=== PATIENT | female | born 1955 | race Caucasian/White ===

== ENCOUNTER 2020-11-20 05:53 | Inpatient (IN) | payer BC ==
[2020-11-13 15:05] LABS: BASOPHILS # (AUTO) 0.1 X10'3 (0-0.2); BASOPHILS % (AUTO) 0.8 % (0-1); EOSINOPHILS # (AUTO) 0.2 X10'3 (0-0.9); EOSINOPHILS % (AUTO) 3.3 % (0-6); LYMPHOCYTES # (AUTO) 2.3 X10'3 (1.1-4.8); LYMPHOCYTES % (AUTO) 35.6 % (21-51); MEAN CORPUSCULAR HEMOGLOBIN 30.2 PG (27.0-31.0); MEAN CORPUSCULAR HGB CONC 33.6 g/dL (33.0-36.5); MEAN CORPUSCULAR VOLUME 89.8 FL (78-98); MONOCYTES # (AUTO) 0.5 X10'3 (0-0.9); MONOCYTES % (AUTO) 7.4 % (2-12); NEUTROPHILS # (AUTO) 3.4 X10'3 (1.8-7.7); NEUTROPHILS % (AUTO) 52.9 % (42-75); PRE OP HEMATOCRIT 42.5 % (35.0-45.0); PRE OP HEMOGLOBIN 14.3 g/dL (12.0-16.0); PRE OP PLATELET COUNT 285 X10'3 (140-440); RED BLOOD COUNT 4.73 X10'6 (4.20-5.60); RED CELL DISTRIBUTION WIDTH 12.8 % (11.5-14.5)
[2020-11-13 15:14] LABS: PRE OP INR 1.1 INR; PRE OP PROTIME 11.2 SECONDS (9.0-12.0)
[2020-11-13 15:27] LABS: ALBUMIN/GLOBULIN RATIO 1.1 (1.1-1.5); ALKALINE PHOSPHATASE 127 IU/L (46-116); BLOOD UREA NITROGEN 13 MG/DL (7-18); CALCIUM 9.5 MG/DL (8.5-10.1); CHLORIDE 106 MMOL/L (99-107); CREATININE 0.81 MG/DL (0.40-0.90); PRE OP ALT 41 U/L (30-65); PRE OP ANION GAP 11 (8-16); PRE OP AST 14 U/L (10-37); PRE OP BILIRUB, TOTAL 0.6 MG/DL (0.0-1.0); PRE OP GLUCOSE 97 MG/DL (70-104); PRE OP POTASSIUM 4.5 MMOL/L (3.4-5.1); PRE OP SODIUM 143 MMOL/L (135-145); TOTAL CARBON DIOXIDE 25.7 MMOL/L (24-32); TOTAL PROTEIN 7.8 G/DL (6.4-8.2); eGFR 71 ML/MIN
[2020-11-20] VITALS (19 sets, daily range): BP systolic 139–187; BP diastolic 71–105
[~2020-11-20] VITALS: Ht 165.1 cm; Wt 91.7 kg
[~2020-11-20 05:53] MED LIST: ASPI-611 PO; ATOR-2 PO; CARV25TA2 PO; CLOP75TA33 PO; DESV100T6 PO; DOCUMENT DATE & TIME OF BETA-BLOCKER PO ONE; HYDR12.55 PO; LISI40TA13 PO; NITR0.4T48 SL; TRAZ-251 PO; cefazolin/dext.iso 2gm/100ml IV ONE; famotidine 20mg tablet PO ONE; ringers solution, lacted 1,000 ML IV SCH
[2020-11-20] MEDS ORDERED: ringers solution, lacted 1,000 ML IV SCH (06:55)
[2020-11-20] MEDS ORDERED: ondansetron/PF 4mg/2ml inj IV PRN ×2 (06:55→14:55)
[2020-11-20] MEDS ORDERED: morphine 4 MG/ML inj SYRINge IV PRN (06:55)
[2020-11-20] MEDS ORDERED: morphine 2 MG/ML inj. syringe IV PRN (06:55)
[2020-11-20] MEDS ORDERED: proCHLORperazine 10 MG/2 ml inj IV PRN (06:55)
[2020-11-20] MEDS ORDERED: meperidine/PF 25mg/ml syringe IV PRN ×3 (06:55)
[2020-11-20 07:38] LABS: CLARITY,URINE CLEAR (Clear); COLOR,URINE YELLOW (Yellow); UA COLLECTION TYPE CLN CATCH MIDSTREAM
[2020-11-20 07:39] LABS: GLUCOSE, URINE NEGATIVE (Neg); KETONES,URINE TRACE mg/dl (Neg); LEUKOCYTE ESTERASE ,URINE NEGATIVE (Neg); NITRITES, URINE NEGATIVE (Neg); OCCULT BLOOD,URINE NEGATIVE (Neg); PROTEIN,URINE NEGATIVE (Neg); UROBILINOGEN,URINE 0.2 E.U/dL (0.2-1.0)
[2020-11-20] MEDS ORDERED: BUPIVAcaine/PF 2.5mg/ml (0.25%) 10ml vial ONE (09:04)
[2020-11-20] MEDS ORDERED: BUPIVACAINE liposomal/PF 13.3 MG/ML vial IM ONE (09:04)
[2020-11-20] MEDS ORDERED: MIDAZolam 1 MG/ML 5ML VIAL ONE (09:49)
[2020-11-20] MEDS ORDERED: fentaNYL /PF 50mcg/ml 5ml ampule ONE (09:49)
[2020-11-20] MEDS ORDERED: rocuronium 10mg/ml inj IV ONE ×3 (09:50→10:58)
[2020-11-20] MEDS ORDERED: dexamethasone sod phosphate 4mg/ml inj. ONE (09:50)
[2020-11-20] MEDS ORDERED: propofol inj 20 ML IV ONE (09:50)
[2020-11-20] MEDS ORDERED: LIDOcaine 2% (20mg/ml) 5ml vial ONE (09:50)
[2020-11-20] MEDS ORDERED: LIDOcaine 1%/PF 5ML 10 MG/ML VIAL ONE (10:02)
[2020-11-20] MEDS ORDERED: neostigmine methylsulfate 1 MG/ML 10ml vial ONE (10:02)
[2020-11-20] MEDS ORDERED: glycopyrrolate 0.2mg/ml inj ONE (10:02)
[2020-11-20] MEDS ORDERED: sevoflurane 250ml liquid IH ONE (10:02)
[2020-11-20] MEDS ORDERED: metoprolol tartrate 1mg/ml inj IV ONE (10:34)
[2020-11-20] MEDS ORDERED: ePHEDrine 50MG/ML INJ. ONE (11:03)
[2020-11-20] MEDS ORDERED: albumin (Human) 5% 250ml 250 ML IV ONE (11:07)
[2020-11-20] MEDS ORDERED: fentaNYL/PF 50MCG/1 ML 2ML syringe ONE (12:25)
[2020-11-20] MEDS ORDERED: ceFAZolin 1000mg inj ONE ×2 (14:20→14:38)
[2020-11-20] MEDS ORDERED: acetaminophen 1,000mg/100ml IV 100 ML IV ONE (14:30)
[2020-11-20] MEDS ORDERED: ondansetron/PF 4mg/2ml inj ONE (14:40)
[2020-11-20] MEDS ORDERED: meperidine/PF 25mg/ml syringe ONE (14:46)
[2020-11-20] MEDS ORDERED: metoclopramide 5 mg/ml inj IV PRN (14:55)
[2020-11-20] MEDS ORDERED: CADD PCA waste documentation MC PRN (14:55)
[2020-11-20] MEDS ORDERED: albuterol 2.5 MG/3 ML nebule NEB PRN (14:55)
[2020-11-20] MEDS ORDERED: naloxone 0.4 mg/ml inj IV PRN (14:55)
--- NOTE | 2020-11-20 15:05 | NUR ---
Received from OR via , accompanied by Anesthesiologist and report given by Anesthesiolgist. PATIENT WAKING UP, NO S/S OF PAIN, V/S STABLE, WHEEZY RT TX AND ABG ORDERED AND CHEST XRY PAGED. CHEST TUBE TO LEFT UPPER LOBE WITH 20CM SUCTION WITH BUBBLES WITH RESPIRATIONS, DR ZUÑIGA AWARE. 50CC IN CHEST TUBE DRAIN ON ARRIVAL.F/C DRAINING CLEAR YELLOW URINE. ART LINE TO RUE AND 20G TO RUE, CL TRIPLE LUMEN TO RIGHT NECK.
[2020-11-20] MEDS ORDERED: albuterol 2.5 MG/3 ML nebule NEB ONE (15:20)
[2020-11-20 15:35] LABS: ABG BASE EXCESS -2.6 mmol/L (-2.0-2.0); ABG HCO3 23.6 mmol/L (22.0-26.0); ABG PCO2 (T) 46.6 mmHg (32.0-45.0); ABG PO2 (T) 87.8 mmHg (75.0-100.0); FCOHb 0.5 % (0.0-3.9); FLOW 6 L/min; FMetHb 0.1 % (0.0-1.5); FO2Hb 95.4 % (94-97); TOTAL HEMOGLOBIN 13.4 G/dl (12.0-16.0)
--- NOTE | 2020-11-20 16:05 | NUR ---
PATIENT A&OX4, STATES PAIN CONTROLLED AT THIS TIME BUT INTERMITTENT, V/S STABLE, CHEST TUBE TO LEFT UPPER LOBE WITH 20CM SUCTION WITH BUBBLES WITH RESPIRATIONS, DR ZUÑIGA AWARE. 60CC IN CHEST TUBE DRAIN .F/C DRAINING CLEAR YELLOW URINE. ART LINE TO RUE AND 20G TO RUE, CL TRIPLE LUMEN TO RIGHT NECK. PATIENT TAKEN TO 2-046 WITH BELONINGS AND HOOKED UP TO MONITORS IN ROOM AND REPORT GIVEN TO PRE ALGEBRA TEACHER WHO HAS TAKEN OVER PATIENT CARE.
--- NOTE | 2020-11-20 16:15 | NUR ---
Received pt from [facility].
[2020-11-20] MEDS: HYDROcodone/acetaminophen 10/325mg tab PO PRN (17:01)
--- NOTE | 2020-11-20 18:27 | NUR ---
Problems reprioritized. Patient report given, questions answered & plan of care reviewed with MACK Lemos.
[2020-11-20] MEDS: morphine 4 MG/ML inj SYRINge IV PRN ×2 (18:54→23:44)
[2020-11-20] MEDS: potassium Cl 20mEq in D5-NS 1,000 ML IV SCH (19:00)
[2020-11-20] MEDS ORDERED: hydrALAZINE 20mg/ml inj. IV PRN (21:10)
[2020-11-20] MEDS: gabapentin 300mg capsule PO SCH (21:32)
[2020-11-20] MEDS: furosemide 20 MG/2 ML vial IV SCH (21:33)
[2020-11-21] VITALS (22 sets, daily range): BP systolic 112–206; BP diastolic 59–90
[2020-11-21] MEDS: niCARDipine-NS 40mg/200ml IVPB 200 ML IV SCH ×3 (01:58→09:24)
[2020-11-21] MEDS: furosemide 20 MG/2 ML vial IV SCH ×3 (02:29→20:11)
[2020-11-21] MEDS: ceFAZolin inj. 1,000 MG in dextrose 5%-water 50ml 50 ML IV SCH ×3 (02:30)
[2020-11-21] MEDS: morphine 4 MG/ML inj SYRINge IV PRN ×4 (03:46→15:17)
[2020-11-21 04:19] LABS: BASOPHILS % (AUTO) 0.1 % (0-1); EOSINOPHILS % (AUTO) 0 % (0-6); HEMATOCRIT 37.9 % (35.0-45.0); HEMOGLOBIN 12.6 g/dl (12.0-16.0); LYMPHOCYTES % (AUTO) 7.9 % (21-51); MEAN CORPUSCULAR HEMOGLOBIN 30.4 PG (27.0-31.0); MEAN CORPUSCULAR HGB CONC 33.1 g/dL (33.0-36.5); MEAN CORPUSCULAR VOLUME 91.7 FL (78-98); MONOCYTES # (AUTO) 0.7 X10'3 (0-0.9); MONOCYTES % (AUTO) 5.6 % (2-12); NEUTROPHILS % (AUTO) 86.4 % (42-75); PLATELET COUNT 222 X10'3 (140-440); RED BLOOD COUNT 4.13 X10'6 (4.20-5.60); RED CELL DISTRIBUTION WIDTH 13.1 % (11.5-14.5); WHITE BLOOD COUNT 12.7 X10'3 (4.5-11.0)
[2020-11-21 05:19] LABS: ALANINE AMINOTRANSFERASE 50 U/L (12-78); ALBUMIN 3.7 G/DL (3.4-5.0); ALBUMIN/GLOBULIN RATIO 1.1 (1.1-1.5); ALKALINE PHOSPHATASE 98 IU/L (46-116); ANION GAP 13 (8-16); ASPARTATE AMINO TRANSFERASE 27 U/L (10-37); BILIRUBIN,TOTAL 0.4 MG/DL (0.1-1.0); BLOOD UREA NITROGEN 13 MG/DL (7-18); BUN/CREATININE RATIO 18.1 (6.6-38.0); CALCIUM 8.5 MG/DL (8.5-10.1); CHLORIDE 105 MMOL/L (99-107); CREATININE 0.72 MG/DL (0.40-0.90); GLUCOSE 143 MG/DL (70-104); POTASSIUM 3.8 MMOL/L (3.5-5.1); SODIUM 144 MMOL/L (135-145); TOTAL CARBON DIOXIDE 26.3 MMOL/L (24-32); TOTAL PROTEIN 7.1 G/DL (6.4-8.2); eGFR 82 ML/MIN
[2020-11-21] MEDS: gabapentin 300mg capsule PO SCH ×2 (07:36→20:12)
[2020-11-21] MEDS ORDERED: HYDROchlorothiazide 25mg tablet PO SCH (08:00)
[2020-11-21] MEDS: lisinopril 20mg tablet PO SCH (09:06)
[2020-11-21] MEDS ORDERED: nitroGLYCERIN 0.4mg SUBLingual tab SL PRN (12:30)
[2020-11-21] MEDS: carVEDilol 12.5mg tablet PO SCH ×2 (12:59→20:12)
[2020-11-21] MEDS: docusate sod 100mg capsule PO SCH ×2 (12:59→20:12)
--- NOTE | 2020-11-21 18:34 | NUR ---
air leak noted to chest6 tube, Dr Bradford notified. stated that is ok . Patient in no distress. order to D/C Art line, diet change to regular diet, O2 to be decrease to 4L.
[2020-11-21] MEDS: HYDROcodone/acetaminophen 10/325mg tab PO PRN (18:40)
[2020-11-21] MEDS: traZODone 50mg tablet PO SCH (20:12)
[2020-11-21] MEDS: potassium Cl 20mEq in D5-NS 1,000 ML IV SCH (21:58)
[2020-11-22] VITALS (13 sets, daily range): BP systolic 114–153; BP diastolic 63–85
[2020-11-22 02:53] LABS: BASOPHILS % (AUTO) 0.1 % (0-1); EOSINOPHILS % (AUTO) 0.1 % (0-6); HEMATOCRIT 35.4 % (35.0-45.0); HEMOGLOBIN 12.1 g/dl (12.0-16.0); LYMPHOCYTES # (AUTO) 2.2 X10'3 (1.1-4.8); LYMPHOCYTES % (AUTO) 16.1 % (21-51); MEAN CORPUSCULAR HEMOGLOBIN 30.7 PG (27.0-31.0); MEAN CORPUSCULAR VOLUME 90.3 FL (78-98); MEAN PLATELET VOLUME 8.5 FL (7.4-10.4); MONOCYTES # (AUTO) 1.2 X10'3 (0-0.9); MONOCYTES % (AUTO) 8.9 % (2-12); NEUTROPHILS # (AUTO) 10.3 X10'3 (1.8-7.7); NEUTROPHILS % (AUTO) 74.8 % (42-75); PLATELET COUNT 207 X10'3 (140-440); RED BLOOD COUNT 3.93 X10'6 (4.20-5.60); RED CELL DISTRIBUTION WIDTH 13.2 % (11.5-14.5); WHITE BLOOD COUNT 13.7 X10'3 (4.5-11.0)
[2020-11-22 03:16] LABS: ALANINE AMINOTRANSFERASE 34 U/L (12-78); ALBUMIN 3.5 G/DL (3.4-5.0); ALKALINE PHOSPHATASE 93 IU/L (46-116); ANION GAP 4 (8-16); ASPARTATE AMINO TRANSFERASE 18 U/L (10-37); BILIRUBIN,TOTAL 0.7 MG/DL (0.1-1.0); BLOOD UREA NITROGEN 11 MG/DL (7-18); BUN/CREATININE RATIO 15.9 (6.6-38.0); CALCIUM 8.7 MG/DL (8.5-10.1); CHLORIDE 101 MMOL/L (99-107); CREATININE 0.69 MG/DL (0.40-0.90); GLUCOSE 113 MG/DL (70-104); POTASSIUM 3.4 MMOL/L (3.5-5.1); SODIUM 138 MMOL/L (135-145); TOTAL CARBON DIOXIDE 32.8 MMOL/L (24-32); TOTAL PROTEIN 6.9 G/DL (6.4-8.2); eGFR 86 ML/MIN
[2020-11-22] MEDS: HYDROcodone/acetaminophen 10/325mg tab PO PRN ×3 (03:20→17:39)
--- NOTE | 2020-11-22 06:00 | NUR ---
Patient in room ICU 2045. I have received report from Alejandro GIRON and had the opportunity to ask questions and assume patient care.
[2020-11-22] MEDS: clopidogrel 75mg tablet PO SCH (07:53)
[2020-11-22] MEDS: lisinopril 20mg tablet PO SCH (07:55)
[2020-11-22] MEDS: carVEDilol 12.5mg tablet PO SCH ×2 (07:56→20:46)
[2020-11-22] MEDS: docusate sod 100mg capsule PO SCH ×2 (07:56→20:47)
[2020-11-22] MEDS: gabapentin 300mg capsule PO SCH (07:57)
[2020-11-22] MEDS: aspirin 81mg, enteric-coated 1 TAB TABLET.DR PO SCH (07:57)
[2020-11-22] MEDS: HYDROchlorothiazide 12.5mg capsule PO SCH ×2 (07:58→20:46)
[2020-11-22] MEDS: furosemide 20 MG/2 ML vial IV SCH ×3 (07:59→20:47)
[2020-11-22] MEDS ORDERED: non-formulary drug (Lisinopril* 1 TAB) PO SCH (08:00)
[2020-11-22] MEDS ORDERED: non-formulary drug (Hydrochlorothiazide 1 TAB) PO SCH (08:00)
--- NOTE | 2020-11-22 08:00 | NUR ---
Charge nurse called Dr. Bradford, orders [facility], d/c central line and stop accuchecks. Right IJ removed without difficulty. Small dressing applied, no signs of bleeding or infection. Right radial arterial site checked, clear.
--- NOTE | 2020-11-22 08:30 | NUR ---
report called to Clarence GIRON, physical therapy working with pt, placing her in wheelchair
--- NOTE | 2020-11-22 10:07 | NUR ---
pts belonging gathered
--- NOTE | 2020-11-22 10:14 | NUR ---
after patient ambulated in the hallway, she was placed in a wheel chair and transferred to room 3020 with satellite project site monitor in place
--- NOTE | 2020-11-22 10:30 | NUR ---
Arrived to unit aprox this time via w/c by Yuridia GIRON, received updates. pt transfered to bed from [facility], stood steady, mod pain reported from ct site. CT intact, airleak noted, draining sersanguinus, no crepitus felt. A/ox3, deny SOB, F/c draining clear yellow urine. call ight in reach, bed low, deny N/v.
[2020-11-22] MEDS: gabapentin 400mg capsule PO SCH ×2 (15:26→20:47)
--- NOTE | 2020-11-22 15:31 | NUR ---
Reported shift CT output to MD Quintero while he made rounds. He said keep the CT to water seal from now, no suction.
--- NOTE | 2020-11-22 18:00 | NUR ---
Patient in room PCU 3020. I have received report from Milad and had the opportunity to ask questions and assume patient care.
--- NOTE | 2020-11-22 18:00 | NUR ---
REGARDING PT NORCO ADMINISTRATION- DOSE GIVEN AT 1030 11/22/20 AFTER PT TRANSFER FROM ICU. DID NOT SAVE SCAN . UPDATED EMAR VIA UNSCHED ADMIN TO REFLECT THIS DOSE RECEIVED- NO COMMENT OPTION AVAILABLE ON EMAR FOR NOTE.
--- NOTE | 2020-11-22 18:46 | NUR ---
Patient in room PCU 3020. I have received report from Milad and had the opportunity to ask questions and assume patient care.
--- NOTE | 2020-11-22 19:02 | NUR ---
250ML OUT CT, 800ML URINE
[2020-11-22] MEDS ORDERED: magnesium 4gm in 100ml NS 100 ML IV PRN (20:30)
[2020-11-22] MEDS ORDERED: potassium Cl 40MEQ/1/2NS 520ml 520 ML IV PRN (20:30)
[2020-11-22] MEDS ORDERED: potassium Cl 20 mEq SR tablet PO PRN (20:30)
[2020-11-22] MEDS: traZODone 50mg tablet PO SCH (20:47)
[2020-11-22] MEDS: potassium Cl 20 mEq SR tablet PO PRN (20:58)
[2020-11-23] MEDS: potassium Cl 20 mEq SR tablet PO PRN ×5 (01:15→21:36)
[2020-11-23 02:00] VITALS: BP 147/43
[2020-11-23 06:00] VITALS: BP 132/82
--- NOTE | 2020-11-23 06:24 | NUR ---
Problems reprioritized. Patient report given, questions answered & plan of care reviewed with Jossy-MACK.
--- NOTE | 2020-11-23 06:36 | NUR ---
Patient in room PCU 3020. I have received report from MACK MASON and had the opportunity to ask questions and assume patient care.
[2020-11-23 07:20] LABS: BASOPHILS % (AUTO) 0.4 % (0-1); EOSINOPHILS # (AUTO) 0.3 X10'3 (0-0.9); EOSINOPHILS % (AUTO) 2.7 % (0-6); HEMATOCRIT 36.7 % (35.0-45.0); HEMOGLOBIN 12.4 g/dl (12.0-16.0); LYMPHOCYTES # (AUTO) 2.3 X10'3 (1.1-4.8); LYMPHOCYTES % (AUTO) 18.7 % (21-51); MEAN CORPUSCULAR HGB CONC 33.8 g/dL (33.0-36.5); MEAN CORPUSCULAR VOLUME 91.7 FL (78-98); MEAN PLATELET VOLUME 8.8 FL (7.4-10.4); MONOCYTES # (AUTO) 1.3 X10'3 (0-0.9); NEUTROPHILS # (AUTO) 8.1 X10'3 (1.8-7.7); NEUTROPHILS % (AUTO) 67.2 % (42-75); PLATELET COUNT 197 X10'3 (140-440); RED BLOOD COUNT 4.01 X10'6 (4.20-5.60); RED CELL DISTRIBUTION WIDTH 13.3 % (11.5-14.5); WHITE BLOOD COUNT 12.1 X10'3 (4.5-11.0)
[2020-11-23 07:57] LABS: ALANINE AMINOTRANSFERASE 29 U/L (12-78); ALBUMIN 3.1 G/DL (3.4-5.0); ALBUMIN/GLOBULIN RATIO 0.8 (1.1-1.5); ALKALINE PHOSPHATASE 89 IU/L (46-116); ANION GAP 9 (8-16); ASPARTATE AMINO TRANSFERASE 14 U/L (10-37); BILIRUBIN,TOTAL 0.7 MG/DL (0.1-1.0); BLOOD UREA NITROGEN 16 MG/DL (7-18); BUN/CREATININE RATIO 26.2 (6.6-38.0); CALCIUM 8.9 MG/DL (8.5-10.1); CHLORIDE 99 MMOL/L (99-107); CREATININE 0.61 MG/DL (0.40-0.90); GLUCOSE 114 MG/DL (70-104); POTASSIUM 3.4 MMOL/L (3.5-5.1); SODIUM 137 MMOL/L (135-145); TOTAL CARBON DIOXIDE 28.8 MMOL/L (24-32); eGFR > 90 ML/MIN
[2020-11-23] MEDS: furosemide 20 MG/2 ML vial IV SCH ×2 (07:57→13:00)
[2020-11-23] MEDS: lisinopril 20mg tablet PO SCH (07:57)
[2020-11-23] MEDS: HYDROchlorothiazide 12.5mg capsule PO SCH ×2 (07:58→21:38)
[2020-11-23] MEDS: docusate sod 100mg capsule PO SCH ×2 (07:58→21:36)
[2020-11-23] MEDS: aspirin 81mg, enteric-coated 1 TAB TABLET.DR PO SCH (07:58)
[2020-11-23] MEDS: clopidogrel 75mg tablet PO SCH (07:59)
[2020-11-23] MEDS: carVEDilol 12.5mg tablet PO SCH ×2 (07:59→21:37)
[2020-11-23] MEDS: gabapentin 400mg capsule PO SCH ×3 (07:59→23:52)
[2020-11-23] MEDS: K and/or MAG REPLACEMENT MC SCH ×2 (08:00→20:00)
[2020-11-23] MEDS: HYDROcodone/acetaminophen 10/325mg tab PO PRN (09:35)
[2020-11-23 11:00] VITALS: BP 91/51
--- NOTE | 2020-11-23 13:35 | NUR ---
LASIX 20 ML HELD DUE TO LOW BP - 89/45, HR - 78. PAGED.
[2020-11-23 16:09] VITALS: BP 120/62
--- NOTE | 2020-11-23 18:00 | NUR ---
Patient in room PCU 3020. I have received report from Jossy GIRON and had the opportunity to ask questions and assume patient care.
--- NOTE | 2020-11-23 18:50 | NUR ---
Problems reprioritized. Patient report given, questions answered & plan of care reviewed with MACK POE AND MACK ISRAEL.
[2020-11-23] MEDS ORDERED: enoxaparin 40mg/0.4ml syringe SUBCUT SCH (20:00)
[2020-11-23 21:00] VITALS: BP 117/70
[2020-11-23] MEDS: traZODone 50mg tablet PO SCH (21:38)
[2020-11-23] MEDS: potassium Cl 20mEq in D5-NS 1,000 ML IV SCH (21:58)
[2020-11-24 02:00] VITALS: BP 134/73
[2020-11-24 06:00] VITALS: BP 127/69
--- NOTE | 2020-11-24 06:17 | NUR ---
Problems reprioritized. Patient report given, questions answered & plan of care reviewed with Roya GIRON.
--- NOTE | 2020-11-24 06:55 | NUR ---
Patient in room PCU 3020. I have received report from Abbey GIRON and had the opportunity to ask questions and assume patient care. Pt alert to voice, no sob. safety measures in place. no s/sx acute distress
[2020-11-24 06:57] LABS: BASOPHILS % (AUTO) 0.4 % (0-1); EOSINOPHILS # (AUTO) 0.5 X10'3 (0-0.9); EOSINOPHILS % (AUTO) 5.5 % (0-6); HEMATOCRIT 36.2 % (35.0-45.0); HEMOGLOBIN 12.4 g/dl (12.0-16.0); LYMPHOCYTES # (AUTO) 2.5 X10'3 (1.1-4.8); LYMPHOCYTES % (AUTO) 24.6 % (21-51); MEAN CORPUSCULAR HEMOGLOBIN 31.4 PG (27.0-31.0); MEAN CORPUSCULAR HGB CONC 34.3 g/dL (33.0-36.5); MEAN CORPUSCULAR VOLUME 91.5 FL (78-98); MEAN PLATELET VOLUME 8.6 FL (7.4-10.4); MONOCYTES % (AUTO) 10.5 % (2-12); NEUTROPHILS # (AUTO) 5.9 X10'3 (1.8-7.7); PLATELET COUNT 197 X10'3 (140-440); RED BLOOD COUNT 3.95 X10'6 (4.20-5.60); RED CELL DISTRIBUTION WIDTH 13.3 % (11.5-14.5)
[2020-11-24 07:25] LABS: ALANINE AMINOTRANSFERASE 25 U/L (12-78); ALBUMIN 2.9 G/DL (3.4-5.0); ALBUMIN/GLOBULIN RATIO 0.7 (1.1-1.5); ALKALINE PHOSPHATASE 86 IU/L (46-116); ANION GAP 9 (8-16); ASPARTATE AMINO TRANSFERASE 11 U/L (10-37); BILIRUBIN,TOTAL 0.7 MG/DL (0.1-1.0); BLOOD UREA NITROGEN 30 MG/DL (7-18); BUN/CREATININE RATIO 35.3 (6.6-38.0); CHLORIDE 104 MMOL/L (99-107); CREATININE 0.85 MG/DL (0.40-0.90); GLUCOSE 109 MG/DL (70-104); MAGNESIUM 2.2 MG/DL (1.5-2.4); SODIUM 140 MMOL/L (135-145); TOTAL CARBON DIOXIDE 27.1 MMOL/L (24-32); eGFR 67 ML/MIN
[2020-11-24] MEDS: K and/or MAG REPLACEMENT MC SCH (08:00)
[2020-11-24] MEDS: docusate sod 100mg capsule PO SCH (08:30)
[2020-11-24] MEDS: carVEDilol 12.5mg tablet PO SCH (08:31)
[2020-11-24] MEDS: HYDROchlorothiazide 12.5mg capsule PO SCH (08:31)
[2020-11-24] MEDS: aspirin 81mg, enteric-coated 1 TAB TABLET.DR PO SCH (08:31)
[2020-11-24] MEDS: clopidogrel 75mg tablet PO SCH (08:31)
[2020-11-24] MEDS: gabapentin 400mg capsule PO SCH (08:31)
[2020-11-24] MEDS: lisinopril 20mg tablet PO SCH (08:33)
[2020-11-24 11:00] VITALS: BP 105/59
[2020-11-24 15:00] VITALS: BP 107/61
--- NOTE | 2020-11-24 15:05 | NUR ---
Pt stable for discharge per MD orders. All discharge instructions reviewed with pt and her . all questions answered. follow up appointment 11/29/[address] Bradford. no new RX. PIV discontinued. cannula intact. youth nutritional monitor discontinued. belongings collected and sent with pt. pt wheeled to [employer] [facility] [employer] where she loaded into the private vehicle of her . pt left grateful for care, glad to discharge and in agreement with POC.
--- NOTE | 2020-11-24 15:15 | NUR ---
[place] documentation: I have reviewed and agree with all interventions, assessments performed and documented by Ana GIRON. [employer] Medication Administration: For this medication-pass time frame, all medication were reviewed, dispensed, administered and documented per hospital policy by Ana GIRON
--- NOTE | 2020-11-24 17:02 | NUR ---
Student documentation: I have reviewed and agree with all interventions, assessments performed and documented by Man Student RN. Student Medication Administration: For this medication-pass time frame, all medication were reviewed, dispensed, administered and documented per hospital policy by Man Student RN.
== END 2020-11-24 15:00 | disposition home or self-care (01) | DRG 165 ==
LOC: PAS 05:53 → PAS IN 05:54 → UNDOADMIN 05:54 → EDSTATUS 08:00 → PAS IN 14:57 → ICU 2S 17:28 → PAS IN 17:28 → PCU 3S 11-22 10:33
PROVIDERS: ADMIT Surgery; ATTEND Surgery
PROC: 0BTG4ZZ Resection of Left Upper Lung Lobe, Percutaneous Endoscopic Approach (ICD-10-PCS; 2020-11-20)
PROC: 8E0W4CZ Robotic Assisted Procedure of Trunk Region, Percutaneous Endoscopic Approach (ICD-10-PCS; 2020-11-20)
PROC: 0BBL4ZZ Excision of Left Lung, Percutaneous Endoscopic Approach (ICD-10-PCS; 2020-11-20)
PROC: 0BJ08ZZ Inspection of Tracheobronchial Tree, Via Natural or Artificial Opening Endoscopic (ICD-10-PCS; principal; 2020-11-20 10:02)
DX: D3A.090 Benign carcinoid tumor of the bronchus and lung (principal); Z20.822 Contact with and (suspected) exposure to COVID-19
CPT/HCPCS: 93306; Z7506; Z7508; 36415; 36600; 71045; 71046; 71250; 80053; 81003; 82803; 82948; 83735; 85018; 85025; 85610; 85730; 86885; 86900; 86901; 87081; 93005; 94640; 94760; 97110; 97116; 97161; 97530; A4618; A6258; A6402; A6449; A7000; A7048; C1758; C9290; C9520; G0378; J0131; J0360; J0690; J1100; J1650; J1940; J2001; J2175; J2250; J2270; J2405; J2704; J2710; J2765; J3010; J3480; J3490; J7040; J7060; J7120; P9045; U0003; U0005

== ENCOUNTER 2021-08-13 00:16 | Outpatient (CLI) | payer MEDICARE, BC ==
[~2021-08-13 00:16] MED LIST changes: -DOCUMENT DATE & TIME OF BETA-BLOCKER PO ONE; -cefazolin/dext.iso 2gm/100ml IV ONE; -famotidine 20mg tablet PO ONE; -ringers solution, lacted 1,000 ML IV SCH
== END 2021-08-13 23:59 | disposition home or self-care (01) ==
LOC: RT 00:16
PROVIDERS: ATTEND Family Medicine
DX: C34.12 Malignant neoplasm of upper lobe, left bronchus or lung (principal)
CPT/HCPCS: 94618